=== PATIENT | male | born 1950 | race American Indian/Alaskan Native ===

== ENCOUNTER 2017-01-02 11:54 | Emergency (ER) | payer MEDICARE ==
[2017-01-02] MEDS ORDERED: NACL 0.9% 500 ML 500 ML IV ONE (12:12)
--- NOTE | 2017-01-02 12:58 | XRay Report ---
ABDOMINAL SERIES: History: Abdominal pain. Supine and upright views of the abdomen and frontal view of the chest are submitted. There is gas mixed with moderate stool throughout the colon. There are no dilated loops of bowel or air-fluid levels. There is no free intraperitoneal gas. The lungs are clear. IMPRESSION: Fecal retention.
--- NOTE | 2017-01-02 13:10 | Emergency Department Report ---
ED General Adult HPI - General Chief complaint: Arrhythmia/Palpitations Stated complaint: ABD PAIN Time Seen by Provider: 01/02/17 12:12 Source: EMS Mode of arrival: Stretcher Limitations: Physical Limitation - History of Present Illness Initial comments: 66-year-old male with a past medical history diabetes and hypertension presents to the hospital with complaints of chest pain and constipation. Patient denies chest pain currently or previously. He only complains of constipation. Common law states she called him last because she felt like she was having a stroke. She states he was sweaty but denies any focal deficits. 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 I was called to the room immediately by nursing staff. Patient has sinus tachycardia on the monitor. EMS reported a blood pressure 200/1:30 prior to arrival. Patient receivedaggressive 2 and aspirin. Initial EKG from EMS shows a narrow complex tachycardia rate 166. Patient is currently 120 sinus tach on a monitor. Patient will have episodes of diaphoresis, straining, and stating that he needs to have a bowel movement which would also increase his heart rate to the 160s. He continues denies chest pain, shortness of breath, nausea, vomiting, no fever , or dysuria. Patient states he cannot remind the last time he had a bowel movement. Common law states that he has been at least 2 weeks. He has not taken any [id number] medication. Severity scale (0 -10): 0 - Related Data Previous Rx's Medication Instructions Recorded Last Taken Type Mineral Oil [Fleet Mineral Oil] 133 ml [place] DAILY PRN #2 bottle 01/02/17 Unknown Rx Polyethylene Glycol 3350 [Miralax 17 gm PO QDAY PRN #15 packet 01/02/17 Unknown Rx 3350] Allergies Allergy/AdvReac Type Severity Reaction Status Date / Time No Known Allergies Allergy Unverified 01/02/17 17:44 ED Review of Systems ROS: Stated complaint: ABD PAIN Other details as noted in HPI Comment: All other systems reviewed and negative Other: Constitutional: No fevers chills Eyes: No eye pain visual changes ENT: No ear pain or throat pain Neck: Denies pain Respiratory: Denies cough wheezing shortness of breath Cardiovascular: Denies chest pain, palpitations, syncope GI: Denies abdominal pain, nausea, vomiting, diarrhea : Denies dysuria Musculoskeletal: Denies back pain Skin: Denies rash Neurologic: Denies headache, numbness, weakness Psychiatric: Denies suicidal ideation, hallucinations ED Past Medical Hx - Social History Smoking Status: Current Every Day Smoker Substance Use Type: None - Medications Home Medications: Home Medications Medication Instructions Recorded Confirmed Last Taken Type Mineral Oil [Fleet Mineral Oil] 133 ml VA DAILY PRN #2 bottle 01/02/17 Unknown Rx Polyethylene Glycol 3350 [Miralax 17 gm PO QDAY PRN #15 packet 01/02/17 Unknown Rx 3350] ED Physical Exam - General Limitations: Physical Limitation - Other Other exam information: General: No limitations, patient is alert in no acute distress Head exam: Atraumatic, normocephalic Eyes exam: Normal appearance ENT: Moist mucous membrane, normal oropharynx Neck exam: Normal inspection, full range of motion Respiratory exam: Clear to auscultation bilateral, no wheezes, rales, crackles Cardiovascular: Tachycardic regular rhythm Abdomen: Soft, nondistended, and nontender, with normal bowel sounds, no rebound, or guarding Extremity: Full range of motion normal inspection no deformity Back: Normal Inspection, full range of motion, no tenderness Neurologic: Alert, oriented x3, cranial nerves intact, right-sided hand contracture and right arm and right leg weakness secondary to previous CVA. No antigravity movement of the leg. Minimal movement of arm. Left arm and leg 5/5 strength. Sensation in tact easily bilaterally Psychiatric: normal affect, normal mood Skin: Intermittent diaphoresis ED Course Vital Signs 01/02/17 01/02/17 01/02/17 11:58 12:01 12:08 Temperature Pulse Rate 122 H 129 H 128 H Respiratory 25 H 25 H Rate Blood Pressure 150/98 Blood Pressure 150/98 [Left] O2 Sat by Pulse 94 97 Oximetry 01/02/17 01/02/17 01/02/17 12:15 12:36 12:46 Temperature Pulse Rate 128 H Respiratory 27 H Rate Blood Pressure 176/98 176/98 182/99 Blood Pressure [Left] O2 Sat by Pulse 94 74 L 92 Oximetry 01/02/17 01/02/17 01/02/17 12:55 13:00 13:16 Temperature Pulse Rate 109 H 129 H Respiratory 19 24 Rate Blood Pressure 153/98 162/111 Blood Pressure [Left] O2 Sat by Pulse 95 89 89 Oximetry 01/02/17 01/02/1701/02/17 13:30 13:45 14:00 Temperature Pulse Rate 97 H 95 H 97 H Respiratory 16 17 16 Rate Blood Pressure 163/90 162/90 151/86 Blood Pressure [Left] O2 Sat by Pulse 80 L 95 96 Oximetry 01/02/17 01/02/17 01/02/17 14:15 14:30 14:45 Temperature Pulse Rate 92 H 103 H 84 Respiratory 15 21 15 Rate Blood Pressure 158/92 181/88 144/88 Blood Pressure [Left] O2 Sat by Pulse 96 92 98 Oximetry 01/02/17 01/02/17 01/02/17 15:00 15:16 15:30 Temperature Pulse Rate 88 90 87 Respiratory 18 21 16 Rate Blood Pressure 159/82 155/91 170/100 Blood Pressure [Left] O2 Sat by Pulse 91 98 98 Oximetry 01/02/17 01/02/17 01/02/17 15:45 16:00 16:15 Temperature Pulse Rate 90 85 Respiratory 23 20 17 Rate Blood Pressure 168/102 168/102 151/88 Blood Pressure [Left] O2 Sat by Pulse 78 L 78 L 96 Oximetry 01/02/17 01/02/17 01/02/17 16:30 16:45 17:00 Temperature Pulse Rate 79 81 81 Respiratory 16 15 16 Rate Blood Pressure 146/86 159/89 151/96 Blood Pressure [Left] O2 Sat by Pulse 98 100 97 Oximetry 01/02/17 01/02/17 01/02/17 17:15 17:30 17:44 Temperature 98.6 F Pulse Rate 78 79 Respiratory 15 13 Rate Blood Pressure 147/86 156/94 Blood Pressure [Left] O2 Sat by Pulse 89 92 Oximetry 01/02/17 01/02/17 01/02/17 17:45 18:00 18:15 Temperature Pulse Rate 76 79 79 Respiratory 15 15 13 Rate Blood Pressure 151/99 154/89 150/93 Blood Pressure [Left] O2 Sat by Pulse 90 85 100 Oximetry - Reevaluation(s) Reevaluation #1: 01/02/17 13:15 After his arrival patient had a large bowel movement and patient states he feels better Reevaluation #2: 01/02/17 17:38 Patient was provided a soapsuds enema and addition of another significant large amount of stool output. Vital signs improved. ED Medical Decision Making - Lab Data Result diagrams: 01/02/17 12:58 01/02/17 12:58 Lab Results 01/02/17 01/02/17 01/02/17 Range/Units 12:58 12:58 12:58 WBC 12.8 H (4.5-11.0) K/mm3 RBC 4.96 (3.65-5.03) M/mm3 Hgb 13.9 (11.8-15.2) gm/dl Hct 43.8 (35.5-45.6) % MCV 88 (84-94) fl MCH 28 (28-32) pg MCHC 32 (32-34) % RDW 16.4 H (13.2-15.2) % Plt Count 180 (140-440) K/mm3 Lymph % (Auto) 14.2 (13.4-35.0) % Kidder % (Auto) 5.0 (0.0-7.3) % Eos % (Auto) 0.3 (0.0-4.3) % Baso % (Auto) 0.4 (0.0-1.8) % Lymph # 1.8 (1.2-5.4) K/mm3 Kidder # 0.6 (0.0-0.8) K/mm3 Eos # 0.0 (0.0-0.4) K/mm3 Baso # 0.1 (0.0-0.1) K/mm3 Seg Neutrophils % 80.1 H (40.0-70.0) % Seg Neutrophils # 10.2 H (1.8-7.7) K/mm3 Sodium 142 (137-145) mmol/L Potassium 3.5 L (3.6-5.0) mmol/L Chloride 102.1 (98-107) mmol/L Carbon Dioxide 16 L (22-30) mmol/L Anion Gap 27 mmol/L BUN 9 (9-20) mg/dL Creatinine 0.8 (0.8-1.5) mg/dL Estimated GFR > 60 ml/min BUN/Creatinine Ratio 11.25 % Glucose 242 H (75-100) mg/dL Calcium 8.9 (8.4-10.2) mg/dL Total Bilirubin 0.30 (0.1-1.2) mg/dL AST 17 (5-40) units/L ALT 17 (7-56) units/L Alkaline Phosphatase 80 (35-129) units/L Total Creatine Kinase 127 (55-170) units/L CK-MB (CK-2) 2.2 (0.0-4.0) ng/mL CK-MB (CK-2) Rel Index 1.7 (0-4) Troponin T < 0.010 (0.00-0.029) ng/mL Total Protein 7.5 (6.3-8.2) g/dL Albumin 3.8 L (3.9-5) g/dL Albumin/Globulin Ratio 1.0 % TSH 2.670 (0.270-4.200) mlU/mL Free T4 0.97 (0.76-1.46) ng/dL - Radiology Data Radiology results: report reviewed (abdominal series x-ray with chest: Fecal retention) - Medical Decision Making Patient's tachycardia, diaphoresis, hypertension likely secondary to acute pain/ pressure secondary to significant fecal retention and associated bowel movement. After bowel movement vital signs and symptoms improvedd. Patient had additional significant fecal output after soapsuds enema. Since patient has improved patient will be discharged home with a laxative for additional relief as outpatient. Patient's labs initially showed a low bicarbonate and anion gap at 27. ABG obtained prior to discharge and revealed no acid-base disturbance. - Differential Diagnosis constipation, obstruction, SVT, arrhythmia Critical Care Time: No Critical care attestation.: If time is entered above; I have spent that time in minutes in the direct care of this critically ill patient, excluding procedure time. ED Disposition Clinical Impression: Fecal retention Disposition: DC-01 TO HOME OR SELFCARE Is pt being admited?: No Does the pt Need Aspirin: No Condition: Stable Instructions: Constipation (ED) Additional Instructions: Take the medication provided as needed for constipation. Tried to increase your fiber intake to prevent further episodes of constipation. Return if symptoms worsen. Prescriptions: Mineral Oil [Fleet Mineral Oil] 133 ml [facility] DAILY PRN #2 bottle PRN Reason: Constipation Polyethylene Glycol 3350 [Miralax 3350] 17 gm PO QDAY PRN #15 packet PRN Reason: Constipation Referrals: PRIMARY CARE, [Primary Care Provider] - 3-5 Days Time of Disposition: 19:26
[2017-01-02 13:33] LABS: Basophils % (Auto) 0.4 % (0.0-1.8); Eosinophils % (Auto) 0.3 % (0.0-4.3); Hematocrit 43.8 % (35.5-45.6); Hemoglobin 13.9 gm/dl (11.8-15.2); Mean Corpuscular HGB Conc 32 % (32-34); Mean Corpuscular Hemoglobin 28 pg (28-32); Mean Corpuscular Volume 88 fl (84-94); Platelet Count 180 K/mm3 (140-440); Red Blood Count 4.96 M/mm3 (3.65-5.03); Red Cell Distribution Width 16.4 % (13.2-15.2); White Blood Count 12.8 K/mm3 (4.5-11.0)
[2017-01-02 13:59] LABS: Creatine Kinase MB 2.2 ng/mL (0.0-4.0)
[2017-01-02 14:00] LABS: Alanine Aminotransferase 17 units/L (7-56); Albumin 3.8 g/dL (3.9-5); Alkaline Phosphatase 80 units/L (35-129); Anion Gap 27 mmol/L; BUN/Creatinine Ratio 11.25; Blood Urea Nitrogen 9 mg/dL (9-20); Calcium 8.9 mg/dL (8.4-10.2); Carbon Dioxide 16 mmol/L (22-30); Chloride 102.1 mmol/L (98-107); Creatine Kinase 127 units/L (55-170); Glucose 242 mg/dL (75-100); Potassium 3.5 mmol/L (3.6-5.0); Sodium 142 mmol/L (137-145); Total Protein 7.5 g/dL (6.3-8.2)
[2017-01-02 18:08] LABS: ISTAT Base Excess -1; ISTAT PCO2 38.6 (35-45); ISTAT PH 7.401 (7.35-7.45); ISTAT PO2 161 (80-105); ISTAT SO2 99; ISTAT TCO2 25
[2017-01-02 20:27] VITALS: BP 149/84
== END 2017-01-02 20:30 | disposition home or self-care (01) ==
LOC: ED 11:54
DX: K59.00 Constipation, unspecified (principal); F17.210 Nicotine dependence, cigarettes, uncomplicated
CPT/HCPCS: 36415; 74022; 80053; 82550; 82553; 82803; 82962; 84439; 84443; 84484; 85025; 93005; 93010; 99285; J7040